=== PATIENT | male | born 1990 | race Caucasian/White ===

== ENCOUNTER 2017-10-03 10:12 | Emergency (ER) | payer OTHER ==
[2017-10-03] MEDS ORDERED: Ketorolac 30 MG/ML SDV IVPUSH ONE (10:53)
[2017-10-03] MEDS ORDERED: Ondansetron 4 MG/2 ML SDV IVPUSH ONE (10:53)
[2017-10-03] MEDS ORDERED: Sodium Chloride 0.9% 1,000 ML IV ONE (10:53)
[2017-10-03] MEDS ORDERED: HYDROmorphone 1 MG/ML Syringe IVPUSH ONE ×2 (10:53→12:22)
--- NOTE | 2017-10-03 10:53 | EDM.PDOC ---
ED HPI GENERAL MEDICAL PROBLEM - General Chief Complaint: Abdominal Pain Stated Complaint: SHARP STOMACH PAIN Time Seen by Provider: 10/03/17 10:37 Source of Information: Reports: Patient History Limitations: Reports: No Limitations - History of Present Illness INITIAL COMMENTS - FREE TEXT/NARRATIVE: HISTORY AND PHYSICAL: History of present illness: [Patient comes to the emergency room complaining of upper abdominal discomfort. He has a known history of cholelithiasis which was diagnosed at his home in [place] one year ago. He was unable to have any surgery as he did not have insurance while he lived there. He's had attacks on and off throughout the past year which last typically an hour or so and resolve without any problems. Woke up this morning and felt well. Pain began at 6:30 a.m. after eating biscuits and gravy for breakfast. Pain has lasted for the past 4+ hours and has remained consistent at 10/10 on the pain scale. Pain is in his mid abdomen and shoots through to his back. Complains of a bloated feeling to his upper abdomen which is a new symptom with his abdominal pain. He denies fever and chills. No recent illness or infection. Mild nausea. No vomiting constipation or diarrhea. Last BM last evening, was normal. No blood in his stools or urine. No burning with urination. No muscle or joint aches or pains. No low back pain. Reports a history of bipolar disorder at age 18, which was treated very short-term with medication. He's been unmedicated and had no issues with mood or behavior in the past 8-9 years. Smokes 1/2 ppd, ETOH occasionally. Review of systems: As per history of present illness and below otherwise all systems reviewed and negative. Past medical history: As per history of present illness and as reviewed below otherwise noncontributory. Surgical history: As per history of present illness and as reviewed below otherwise noncontributory. Social history: No reported history of drug or alcohol abuse. Family history: As per history of present illness and as reviewed below otherwise noncontributory. Physical exam: HEENT: Atraumatic, normocephalic. Cerumen present bilateral ear canals. Anicteric, no conjunctival pallor. mucous membranes moist, throat clear. neck supple, nontender. No lymphadenopathy. Lungs: Clear to auscultation, breath sounds equal bilaterally. Heart: S1S2, regular rate and rhythm. No murmur, click or rub. Abdomen: Normal in appearance. Thin, flat. Bowel sounds are normoactive throughout. Abdomen is soft and nondistended. He is exquisitely tender in the epigastric area and right upper quadrant. No guarding, rebound or masses. Negative for costovertebral tenderness. Pelvis: Stable nontender. Genitourinary: Deferred. Rectal: Deferred. Extremities: Atraumatic, negative for cords or calf pain. No cyanosis or edema to feet or lower legs. Neurovascular unremarkable. Neuro: Awake, alert, oriented. Motor and sensory unremarkable throughout. Exam nonfocal. Diagnostics: [CBC, CMP, UA, amylase, lipase, limited abdominal ultrasound] Therapeutics: [IV NS x 1 liter, Toradol 30mg IV, Dilaudid 0.5 mg IV x 2, Morphine 2mg IV] Impression: [cholelithiases] Plan: [Patient's labs, ultrasound, and presentation is reviewed with Dr. Bates, senior solutions consultant surgeon, who recommends that patient be seen in clinic. Patient's pain improves to 6/10 and he requests discharge from ER stating that he feels well enough to go home. Rx written for Percocet 5/325 mg #10 sig: One by mouth every 6 hours as needed for pain 0 refills, Zofran ODT #10 si by mouth every 6 hours as needed for nausea 0 refills. He is notified of surgery appt scheduled for tomorrow. Strict return precautions are reveiwed w/ patient. All questions are answered and concerns are addressed. ] Definitive disposition and diagnosis as appropriate pending reevaluation and review of above. Middle Abdominal Pain Score (Numeric/FACES): 10 - Related Data Allergies Allergy/AdvReac Type Severity Reaction Status Date / Time No Known Allergies Allergy Verified 10/03/17 10:24 Home Meds: Home Meds . [No Known Home Meds] 10/03/17 [History] Past Medical History Gastrointestinal History: Reports: Cholelithiasis Psychiatric History: Reports: ADHD - Infectious Disease History Infectious Disease History: Reports: MRSA Social & Family History - Family History Family Medical History: Noncontributory - Tobacco Use Smoking Status *Q: Current Every Day Smoker Years of Tobacco use: 10 Packs/Tins Daily: 0.5 - Caffeine Use Caffeine Use: Reports: Coffee, Energy Drinks, Soda, Tea - Alcohol Use Days Per Week of Alcohol Use: 0 - Recreational Drug Use Recreational Drug Use: No ED ROS GENERAL - Review of Systems Review Of Systems: ROS reveals no pertinent complaints other than HPI. ED EXAM, GI/ABD - Physical Exam Exam: See Below Course - Vital Signs Last Recorded V/S: Last Vital Signs Temp 97.2 F 10/03/17 13:15 Pulse 65 10/03/17 14:47 Resp 16 10/03/17 14:47 BP 122/71 10/03/17 14:47 Pulse Ox 98 10/03/17 14:47 - Orders/Labs/Meds Labs: Laboratory Tests 10/03/17 10/03/17 10/03/17 Range/Units 10:52 11:15 11:15 WBC 9.08 (4.0-11.0) K/uL RBC 4.81 (4.50-5.90) M/uL Hgb 15.0 (13.0-17.0) g/dL Hct 43.0 (38.0-50.0) % MCV 89.4 (80.0-98.0) fL MCH 31.2 (27.0-32.0) pg MCHC 34.9 (31.0-37.0) g/dL RDW Std Deviation 42.5 (28.0-62.0) fl RDW Coeff of Bettie 13 (11.0-15.0) % Plt Count 230 (150-400) K/uL MPV 10.40 (7.40-12.00) fL Neut % (Auto) 71.3 (48.0-80.0) % Lymph % (Auto) 14.0 L (16.0-40.0) % [place] % (Auto) 12.2 (0.0-15.0) % Eos % (Auto) 2.3 (0.0-7.0) % Baso % (Auto) 0.2 (0.0-1.5) % Neut # (Auto) 6.5 H (1.4-5.7) K/uL Lymph # (Auto) 1.3 (0.6-2.4) K/uL [place] # (Auto) 1.1 H (0.0-0.8) K/uL Eos # (Auto) 0.2 (0.0-0.7) K/uL Baso # (Auto) 0.0 (0.0-0.1) K/uL Nucleated RBC % 0.0 /100WBC Nucleated RBCs # 0 K/uL Sodium 139 (136-146) mmol/L Potassium 3.8 (3.5-5.1) mmol/L Chloride 106 (98-110) mmol/L Carbon Dioxide 24 (21-31) mmol/L BUN 17 (6.0-23.0) mg/dL Creatinine 0.9 (0.6-1.5) mg/dL Est Cr Clr Drug Dosing 152.70 mL/min Estimated GFR (MDRD) > 60.0 ml/min Glucose 100 (60-110) mg/dL Calcium 9.1 (8.8-10.8) mg/dL Total Bilirubin 1.3 (0.1-1.5) mg/dL AST 157 H (5-40) IU/L ALT 151 H (8-54) IU/L Alkaline Phosphatase 82 (40-150) Total Protein 7.0 (6.0-8.0) g/dL Albumin 4.2 (3.5-5.0) g/dL Globulin 2.8 (2.0-3.5) g/dL Albumin/Globulin Ratio 1.5 (1.3-2.8) Amylase 25 (10-90) U/L Lipase 14 (7-80) U/L Urine Color YELLOW Urine Appearance CLEAR Urine pH 7.0 (5.0-8.0) Ur Specific [place] 1.020 (1.001-1.035) Urine Protein NEGATIVE (NEGATIVE) mg/dL Urine Glucose (UA) NEGATIVE (NEGATIVE) mg/dL Urine Ketones NEGATIVE (NEGATIVE) mg/dL Urine Occult Blood TRACE-INTACT (NEGATIVE) Urine Nitrite NEGATIVE (NEGATIVE) Urine Bilirubin NEGATIVE (NEGATIVE) Urine Urobilinogen 2.0 H (<2.0) EU/dL Ur Leukocyte Esterase NEGATIVE (NEGATIVE) Urine RBC 0-1 (0-2/HPF) Urine WBC 0-1 (0-5/HPF) Ur Epithelial Cells RARE (NONE-FEW) Amorphous Sediment LIGHT (NEGATIVE) Urine Bacteria RARE (NEGATIVE) Meds: Medications Discontinued Medications Generic Name Dose Route Start Last Admin Trade Name Freq PRN Reason Stop Dose Admin Hydromorphone HCl 0.5 mg 10/03/17 10:53 10/03/17 11:12 Dilaudid IVPUSH 10/03/17 10:54 0.5 mg ONETIME ONE Administration Hydromorphone HCl 0.5 mg 10/03/17 12:22 10/03/17 12:27 Dilaudid IVPUSH 10/03/17 12:23 0.5 mg ONETIME ONE Administration Sodium Chloride 1,000 mls @ 999 mls/hr 10/03/17 10:53 10/03/17 11:13 Normal Saline IV 10/03/17 11:53 999 mls/hr .Bolus ONE Administration Ketorolac Tromethamine 30 mg 10/03/17 10:53 10/03/17 11:12 Toradol IVPUSH 10/03/17 10:54 30 mg ONETIME ONE Administration Morphine Sulfate 2 mg 10/03/17 13:17 10/03/17 13:30 Morphine IVPUSH 10/03/17 13:18 2 mg ONETIME ONE Administration Morphine Sulfate Confirm 10/03/17 13:28 Morphine Administered 10/03/17 13:29 Dose 2 mg .ROUTE .STK-MED ONE Ondansetron HCl 4 mg 10/03/17 10:53 10/03/17 11:12 Zofran IVPUSH 10/03/17 10:54 4 mg ONETIME ONE Administration Departure - Departure Time of Disposition: 14:15 Disposition: Home, Self-Care 01 Condition: Good Clinical Impression: Cholelithiases - Discharge Information Instructions: Cholelithiasis Referrals: Marely Bates MD [Physician] - 10/04/17 9:30 am (Please arrive for check in at 0930am. ) PCP,None [Primary Care Provider] - Forms: ED Department Discharge Additional Instructions: The following information is given to patients seen in the emergency department who are being discharged to home. This information is to outline your options for follow-up care. We provide all patients seen in our emergency department with a follow-up referral. The need for follow-up, as well as the timing and circumstances, are variable depending upon the specifics of your emergency department visit. If you don't have a primary care physician on staff, we will provide you with a referral. We always advise you to contact your personal physician following an emergency department visit to inform them of the circumstance of the visit and for follow-up with them and/or the need for any referrals to a consulting specialist. The emergency department will also refer you to a specialist when appropriate. This referral assures that you have the opportunity for follow-up care with a specialist. All of these measure are taken in an effort to provide you with optimal care, which includes your follow-up. Under all circumstances we always encourage you to contact your private physician who remains a resource for coordinating your care. When calling for follow-up care, please make the office aware that this follow-up is from your recent emergency room visit. If for any reason you are refused follow-up, please contact the [facility] emergency department at and asked to speak to the emergency department charge nurse. [facility] Specialty Care- General Surgery Professional Building [address] [place] [address], [address] [place] [address] Follow-up with the clinic listed above at 0930 tomorrow morning. Tylenol or ibuprofen as needed for discomfort. Zofran and Percocet as needed. [place] foods only. Return to ER as needed as discussed.
[2017-10-03 11:53] LABS: CHLORIDE,CL 106 mmol/L (98-110); SODIUM,NA 139 mmol/L (136-146)
--- NOTE | 2017-10-03 12:05 | US ---
EXAMINATION: Right upper quadrant ultrasound HISTORY: History of gallstones COMPARISON: None TECHNIQUE: Grayscale and color Doppler images obtained of the right upper quadrant. FINDINGS: The visualized pancreas appears normal. The liver appears normal in contour and echogenicit y without a focal matted mass. Gallstones are noted without pericholecystic fluid or gallbladder wall thickening. Common bile duct measures 4 mm. The right kidney measures at least 12.9 cm [id number] without evidence of hydronephrosis. Sonographic Aguirre sign is not reported. IMPRESSION: 1. Multiple gallstones without secondary signs of cholecystitis.
[2017-10-03] MEDS ORDERED: Morphine 2 MG/ML Syringe IVPUSH ONE (13:17)
[2017-10-03] MEDS ORDERED: Morphine 2 MG/ML Syringe ONE (13:28)
== END 2017-10-03 14:36 | disposition home or self-care (01) ==
LOC: MW.ED 10:12
DX: K80.20 Calculus of gallbladder without cholecystitis without obstruction (principal); F17.210 Nicotine dependence, cigarettes, uncomplicated
CPT/HCPCS: 36415; 76705; 80053; 81001; 82150; 83690; 85025; 96361; 96374; 96375; 96376; 99284; J1170; J1885; J2270; J2405; J7040; 99283

== ENCOUNTER 2017-10-06 21:04 | Emergency (ER) | payer OTHER ==
[2017-10-06] MEDS ORDERED: Pantoprazole 40 MG Vial IVPUSH ONE (21:47)
[2017-10-06] MEDS ORDERED: Alum Hydrox/Mag Hydrox/Simeth 15 ML, Metoclopramide 5 MG, Lidocaine 2% 5 ML PO ONE ×3 (21:48)
[2017-10-06 21:50] LABS: CHLORIDE,CL 109 mmol/L (98-110); SODIUM,NA 143 mmol/L (136-146)
--- NOTE | 2017-10-06 21:57 | EDM.PDOC ---
<Lynne Branham - Last Filed: 10/06/17 21:54> ED HPI GENERAL MEDICAL PROBLEM - General Chief Complaint: Abdominal Pain Stated Complaint: PT HAS STOMACH PAINS Time Seen by Provider: 10/06/17 21:35 Source of Information: Reports: Patient History Limitations: Reports: No Limitations - History of Present Illness INITIAL COMMENTS - FREE TEXT/NARRATIVE: HISTORY AND PHYSICAL: History of present illness: [Patient comes to the emergency room complaining of epigastric and right upper quadrant abdominal pain. He has a known history of multiple gallstones and was evaluated in the ER October 03. He had an appointment with Dr. Andrews ER on the morning of October 04 and she advised cholecystectomy. The patient has yet to get this scheduled and is debating if he should go home to [place] for his surgery or if he should schedule time to do it here. Pain was tolerable over the weekend when taking Percocet but now he is out of this medication and pain is not managed with Tylenol and ibuprofen. His pain is unchanged. He has no other symptoms.] Review of systems: As per history of present illness and below otherwise all systems reviewed and negative. Past medical history: As per history of present illness and as reviewed below otherwise noncontributory. Surgical history: As per history of present illness and as reviewed below otherwise noncontributory. Social history: No reported history of drug or alcohol abuse. Family history: As per history of present illness and as reviewed below otherwise noncontributory. Physical exam: HEENT: Atraumatic, normocephalic. Oral mucous membranes are pink and moist. Lungs: Clear to auscultation, breath sounds equal bilaterally. Heart: S1S2, regular rate and rhythm. Abdomen: Bowel sounds are normoactive throughout. Abdomen is soft and nondistended. He is tender throughout his entire abdomen but is worse over the epigastric and right upper quadrant areas. No masses guarding or rebound. No CVA tenderness. Pelvis: Stable nontender. Genitourinary: Deferred. Rectal: Deferred. Extremities: Atraumatic. Neurovascular unremarkable. Neuro: Awake, alert, oriented. Motor and sensory unremarkable throughout. Exam nonfocal. Diagnostics: [CBC, CMP, UA, amylase, lipase, abdominal ultrasound] Therapeutics: [GI cocktail, Protonix 80 mg] Impression: [] Plan: [] Definitive disposition and diagnosis as appropriate pending reevaluation and review of above. abdomen Pain Score (Numeric/FACES): 8 - Related Data Allergies Allergy/AdvReac Type Severity Reaction Status Date / Time ketorolac [From Toradol] Allergy Nausea and Verified 10/06/17 21:43 Vomiting Home Meds: Home Meds oxyCODONE HCl/Acetaminophen [oxyCODONE-Acetaminophen 5-325] 1 tab PO Q4H PRN 04/17 [History] Past Medical History - Past Health History Medical/Surgical History: Denies Medical/Surgical History Gastrointestinal History: Reports: Cholelithiasis Psychiatric History: Reports: ADHD, Bipolar - Infectious Disease History Infectious Disease History: Reports: MRSA Social & Family History - Family History Family Medical History: Noncontributory - Tobacco Use Smoking Status *Q: Current Every Day Smoker Years of Tobacco use: 10 Packs/Tins Daily: 1 - Caffeine Use Caffeine Use: Reports: Coffee, Energy Drinks, Soda, Tea - Alcohol Use Days Per Week of Alcohol Use: 0 - Recreational Drug Use Recreational Drug Use: No ED ROS GENERAL - Review of Systems Review Of Systems: ROS reveals no pertinent complaints other than HPI. ED EXAM, GI/ABD - Physical Exam Exam: See Below Course - Vital Signs Last Recorded V/S: Last Vital Signs Temp 36.8 C 10/06/17 21:04 Pulse 65 10/06/17 21:04 Resp 21 H 10/06/17 21:04 BP 133/70 10/06/17 21:04 Pulse Ox 95 10/06/17 21:04 - Orders/Labs/Meds Orders: Active Orders 24 hr Category Date Time Status Abdomen Ltd [US] Stat Exams 10/06/17 21:12 Taken UA W/MICROSCOPIC [URIN] Stat Lab 10/06/17 22:05 Results Labs: Laboratory Tests 10/06/17 10/06/17 10/06/17 Range/Units 21:22 21:22 22:05 WBC 6.42 (4.0-11.0) K/uL RBC 4.73 (4.50-5.90) M/uL Hgb 14.5 (13.0-17.0) g/dL Hct 42.5 (38.0-50.0) % MCV 89.9 (80.0-98.0) fL MCH 30.7 (27.0-32.0) pg MCHC 34.1 (31.0-37.0) g/dL RDW Std Deviation 42.2 (28.0-62.0) fl RDW Coeff of Bettie 13 (11.0-15.0) % Plt Count 216 (150-400) K/uL MPV 10.30 (7.40-12.00) fL Neut % (Auto) 59.7 (48.0-80.0) % Lymph % (Auto) 26.6 (16.0-40.0) % [place] % (Auto) 9.8 (0.0-15.0) % Eos % (Auto) 3.6 (0.0-7.0) % Baso % (Auto) 0.3 (0.0-1.5) % Neut # (Auto) 3.8 (1.4-5.7) K/uL Lymph # (Auto) 1.7 (0.6-2.4) K/uL [place] # (Auto) 0.6 (0.0-0.8) K/uL Eos # (Auto) 0.2 (0.0-0.7) K/uL Baso # (Auto) 0.0 (0.0-0.1) K/uL Nucleated RBC % 0.0 /100WBC Nucleated RBCs # 0 K/uL Sodium 143 (136-146) mmol/L Potassium 3.5 (3.5-5.1) mmol/L Chloride 109 (98-110) mmol/L Carbon Dioxide 26 (21-31) mmol/L BUN 21 (6.0-23.0) mg/dL Creatinine 1.0 (0.6-1.5) mg/dL Est Cr Clr Drug Dosing 137.43 mL/min Estimated GFR (MDRD) > 60.0 ml/min Glucose 92 (60-110) mg/dL Calcium 9.3 (8.8-10.8) mg/dL Total Bilirubin 0.6 (0.1-1.5) mg/dL AST 38 (5-40) IU/L ALT 275 H (8-54) IU/L Alkaline Phosphatase 102 (40-150) Total Protein 6.9 (6.0-8.0) g/dL Albumin 4.0 (3.5-5.0) g/dL Globulin 2.9 (2.0-3.5) g/dL Albumin/Globulin Ratio 1.4 (1.3-2.8) Amylase 26 (10-90) U/L Lipase 17 (7-80) U/L Urine Color YELLOW Urine Appearance CLEAR Urine pH 7.5 (5.0-8.0) Ur Specific [place] 1.015 (1.001-1.035) Urine Protein NEGATIVE (NEGATIVE) mg/dL Urine Glucose (UA) NEGATIVE (NEGATIVE) mg/dL Urine Ketones NEGATIVE (NEGATIVE) mg/dL Urine Occult Blood NEGATIVE (NEGATIVE) Urine Nitrite NEGATIVE (NEGATIVE) Urine Bilirubin NEGATIVE (NEGATIVE) Urine Urobilinogen 2.0 H (<2.0) EU/dL Ur Leukocyte Esterase NEGATIVE (NEGATIVE) Meds: Medications Discontinued Medications Generic Name Dose Route Start Last Admin Trade Name Freq PRN Reason Stop Dose Admin Al Hydroxide/Mg Hydroxide 15 0 ml 10/06/17 21:48 10/06/17 22:01 ml/ Metoclopramide HCl 5 mg/ PO 10/06/17 21:49 25 each Lidocaine HCl 5 ml ONETIME ONE Administration Pantoprazole Sodium 80 mg 10/06/17 21:47 10/06/17 22:00 Protonix Iv IVPUSH 10/06/17 21:48 80 mg .BOLUS ONE Administration Departure - Departure Disposition: Home, Self-Care 01 Clinical Impression: Cholelithiasis - Discharge Information Referrals: PCP,None [Primary Care Provider] - Forms: ED Department Discharge Additional Instructions: The following information is given to patients seen in the emergency department who are being discharged to home. This information is to outline your options for follow-up care. We provide all patients seen in our emergency department with a follow-up referral. The need for follow-up, as well as the timing and circumstances, are variable depending upon the specifics of your emergency department visit. If you don't have a primary care physician on staff, we will provide you with a referral. We always advise you to contact your personal physician following an emergency department visit to inform them of the circumstance of the visit and for follow-up with them and/or the need for any referrals to a consulting specialist. The emergency department will also refer you to a specialist when appropriate. This referral assures that you have the opportunity for followup care with a specialist. All of these measure are taken in an effort to provide you with optimal care, which includes your followup. Under all circumstances we always encourage you to contact your private physician who remains a resource for coordinating your care. When calling for followup care, please make the office aware that this follow-up is from your recent emergency room visit. If for any reason you are refused follow-up, please contact the [facility] emergency department at and asked to speak to the emergency department charge nurse. Motrin/Tylenol as directed diet as discussed keep follow-up with general surgery return as needed as discussed <aMrkus Lopez - Last Filed: 10/06/17 23:01> ED ROS GENERAL - Review of Systems Review Of Systems: ROS reveals no pertinent complaints other than HPI. ED EXAM, GI/ABD - Physical Exam Exam: See Below (See dictation) Departure - Departure Time of Disposition: 23:01 Condition: Good
--- NOTE | 2017-10-07 13:34 | US ---
EXAM DATE: 10/06/17 PATIENT'S AGE: 27 Patient: ABILIO PICKENS Facility: [place], [place] Site . Site : 1990 Study: US Abdomen [id number] 10:35:31 PM Ordering Physician: Doctor Frias Final Report: INDICATION: Epigastric pain TECHNIQUE: Ultrasound abdomen limited. Sonographic images of the right upper quadrant were obtained using cano-scale and color Doppler images. COMPARISON: None FINDINGS: Liver: Normal in size and echotexture. No masses. No intrahepatic biliary dilatation. Gallbladder: The gallbladder is contracted. Multiple gallstones identified. Sonographic Aguirre`s sign is negative. Normal wall thickness. No pericholecystic fluid. Common bile duct: 3 mm. Pancreas: Normal. Right kidney: 12.2 cm in length. Normal echotexture and cortex. No masses, stones, or hydronephrosis. IMPRESSION: Chololithiasis without evidence for cholecystitis. Dictated by Farzaneh Beavers MD @ Oct 06 2017 10:41PM (Electronic Signature) Report Signed by Proxy. YASMINE
== END 2017-10-06 23:10 | disposition home or self-care (01) ==
LOC: MW.ED 21:04
DX: K80.20 Calculus of gallbladder without cholecystitis without obstruction (principal); F17.210 Nicotine dependence, cigarettes, uncomplicated; Z88.6 Allergy status to analgesic agent
CPT/HCPCS: 36415; 76705; 80053; 81001; 82150; 83690; 85025; 96374; 99284; A9270; C9113; 99283